=== PATIENT | female | born 1955 | race Caucasian/White ===

== ENCOUNTER 2019-11-26 13:17 | Emergency (ER) | payer OTHER ==
--- OUTSIDE RECORDS SUMMARY | 2019-11-26 13:20 | XMS REPORT | Continuity of Care Document ---
:1955 Author Organization [facility] t Address [address] [place] [address] Care Team Providers Name Role Phone Rakesh PITT, L Attending Clinician Jorje Carpenter Attending Clinician Problems Condition Condition Condition Status Onset Resolution Last Treating Co mments Source Name Details Category Date Date Treatment Clinician Date R92.8 - Diagnosis Active 2016-05-05 Me moria OTH ABN - 09:21:00 l AND R92.8 - 00:01: Mascot INCONCLUSI OTH ABN 00 VE FINDI AND INCONCLUSI VE FINDI Active 05/02/2016 [facility] BREAST Diagnosis Active 2011-08-26 [facility] oria CANCER 4- 15:22:00 l BREAST 08:00: Jeramy CANCER 00 Active 07/02/2011 [facility] 174.4 Diagnosis Active 2011-04-19 [facility] o[facility] 1- 10:25:00 l 174.4 08:00: Jeramy 00 Active 04/02/2011 [facility] 174.4 Diagnosis Active 2010-042011-04-05 [facility] BREAST CA 2- 09:23:00 l 174.4 08:00: Mascot BREAST CA 00 Active 03/02/2011 [facility] Allergies, Adverse Reactions, Alerts This patient has no known allergies or adverse reactions. Social History Social Habit Start Date Stop Date Quantity Comments Source Social History 2016-05-06 2016-05-06 [facility] 05:59:00 05:59:00 Medications This patient has no known medications. Procedures This patient has no known procedures. Encounters Start End Encounter Admission Attending Care Care Encounter Source Date/Time Date/Time Type Type Clinicians Facility Department ID 2019-05-12 2019-05-12 Hospital IMELDA Cameron [id number] 15:03:00 23:59:00 Encounter Elier Polo [id number] Surgical [id number] Specialti [id number] es [address] [place] 2019-05-12 2019-05-12 Office Rakesh SDKYLE [id number] 14:45:27 15:00:27 Visit Elier Polo [id number] Surgical [id number] Specialti [id number] es [address] [place] 2019-05-12 2019-05-12 Letter Rakesh SDKYLE [id number] 00:00:00 00:00:00 (Out) Elier Polo [id number] Surgical [id number] Specialti [id number] es [address] [place] 2016-05-05 2016-05-05 Outpatient Jayden, [id number] 09:13:00 23:59:00 [place] V [id number] Results This patient has no known results.
--- OUTSIDE RECORDS SUMMARY | 2019-11-26 13:20 | XMS REPORT | Continuity of Care Document ---
:1955 Author Organization [email or web address] [facility] Care Team Providers Name Role Phone [email or web address] [facility] Unavailable Un available Problems Problem Status Onset Classification Date Comments Sourc e Date Reported R92.8 - OTH ABN Active 05/02/19 Nicholas rial AND INCONCLUSIVE 17 Her matos FINDI BREAST CANCER Active 07/02/19 [facility] R[facility] theast 12 174.4 Active 04/02/[address] 12 174.4 BREAST CA Active 03/02/20 [facility] 11 Medications No Data Provided for This Section Allergies, Adverse Reactions, Alerts No Known Medication Allergies Immunizations No Data Provided for This Section Results No Data Provided for This Section Pathology Reports No Data Provided for This Section Diagnostic Reports Report Value Date Source Breast Complete Ruben - BREAST COMPLETE RUBEN US 05/05/2016 [facility] US ULTRASOUND OF BOTH BREASTS: 05/05/2016 CLINICAL: History Of Left Cancer. Left breast pain and history of left breast canc er Comparison is made to exams dated: 08/12/2014 breast MRI, 01/12/2014 mammogram, 01/12/2014 ultrasound, 07/09/2013 breast MRI, 01/10/2013 mammogram and 01/10/2013 ultrasound - [facility]. Real-time ultrasound of both breasts was perform ed. The entire right and left br easts were evaluated including all four quadrants, subareolar region, axilla, and axillary tail. There are no abnormal-appearing lymph nodes in b oth axilla. There is a 1.8 cm lymph node in the left axillary tail. with thickened cortex at 6 mm. This correlates with mammography findings. There also is a benign 1 cm fluid collection in the left breast at 1 o'clock middle depth. This abnormality is decreased in size. IMPRESSION: INCOMPLETE: NEED S ADDITIONAL IMAGING EVALUATION - FOLLOW-UP RECOMMENDED The 1.8 cm lymph node in the left axillary tail is indeterminate. The focal asymmetry seen in the left breast likely represent post surgical changes is indeterminate. Given personal history of br east cancer, last MRI on 08.12.2014, and indeterminate left axillary lymph node, MRI is recommended. If MRI cannot be done, ultrasound guided biopsy would be recommended for the left axillary lymph node. The above was discussed with the patient by myself and she voiced understanding on 05.05.2016. She will discuss with her physician first. When the patient returns for her MRI (or biopsy), left mammogram additional views could be done at no charge. Joby Cardenas M.D. mt/:05/05/2016 16:42:32 Safety Intern: Skyler Thomas RT(Janee)(Annetta), [facility] This exam was dictated and i nterpreted by [id number] for [facility]. letter sent: Additional Imaging Ultrasound BI-RADS: 0 Indeterminate Breast Mammo Diag RUBEN - BREAST MAMMO DIAG RUBEN INCL CAD MA 2016 [facility] incl CAD MA BILATERAL DIGITAL DIAGNOSTIC MAMMOGRAM WITH CAD: 05/05/2016 CLINICAL: History Of Left Cancer. Current study was evaluated with a Surgery Technician d Detection (CAD) system. Comparison is made to exams dated: 08/12/2014 breast MRI, 01/12/2014 mammogram, 01/12/2014 ultrasound, 07/09/2013 breast MRI, 01/10/2013 mammogram and 01/10/2013 ultrasound - [facility]. The tissue of both breasts i s heterogeneously dense, which could obscure detection of small masses. There are benign scattered c alcifications and densities in both breasts. There also are post operative findings in the left breast. There is a 2 cm lymph node in the left axillary tail. There also is a focal asymme try in the left breast posterior depth lateral region seen on the craniocaudal view only. This finding is approximately 7 cm from the nipple and best seen on LXCCL. No other significant masses, calcifications, or other findings are seen in either breast. IMPRESSION: INCOMPLETE: NEEDS ADDITIONAL IMAGING EVALUATION The 2 cm lymph node in the left axillary tail is indeterminate. The focal asymmetry in the l eft breast posterior depth lateral region seen on the craniocaudal view only likely represents a post surgical scar and is indeterminate. PLEASE SEE SAME DAY ULTRASOUND REPORT. Joby Cardenas M.D. mt/:05/05/2016 16:42:32 Safety Intern: Skyler GREEN)(Annetta), [facility] This exam was dictated and i nterpreted by [id number] for [facility]. letter sent: Additional Imaging Mammogram BI-RADS: 0 Indeterminate Consultation Notes No Data Provided for This Section Discharge Summaries No Data Provided for This Section History and Physicals No Data Provided for This Section Vital Signs No Data Provided for This Section Encounters Location Location Encounter Encounter Reason Attending [facility] Stat Source Details Type Number For Provider Date Date Visit Outpatient [id number] BREAST [place] 02/21 [place] [facility] [place] [id number] BREAST [place] 03/01 [facility] [place] [id number] 174.4 [place] 04/05 [facility] [place]AST [place] [id number] 174.4 [place] 04/19 [place] [facility] [place] [facility] Outpt Diag [id number] [place] 05/05 05/06 [facility] Outpatient Services /2016 [facility] [id number] BREAST [place] [facility] [place] [facility] [place] Procedures No Data Provided for This Section Assessment and Plan No Data Provided for This Section Plan of Care No Data Provided for This Section Social History Social History Date Source No data available for this 05/06/2016 [facility] Family History No Data Provided for This Section Advance Directives No Data Provided for This Section Functional Status No Data Provided for This Section
[2019-11-26] MEDS ORDERED: FENTANYL CITR 100 MCG/2 ML ONE (14:41)
[2019-11-26] MEDS ORDERED: DIAZEPAM 2 MG TABLET ONE (14:42)
[2019-11-26] MEDS ORDERED: IBUPROFEN 200 MG TAB PO ONE (14:42)
--- NOTE | 2019-11-26 15:05 | EDPHYS ---
Physician Documentation [facility] Name: Sue Christensen Age: 64 yrs Sex: Female : 1955 Arrival Date: 11/26/2019 Time: 13:19 Bed 26 Private MD: Donald Yanez ED Physician Jamal Bryant HPI: 11/25 15:27 This 64 yrs old Female presents to ER via Ambulatory with complaints of Arm snw Injury. 15:27 The patient or guardian complains of decreased range of motion, pain, swelling. The snw complaints affect the right elbow. Context: The problem was sustained at home, resulted from a fall, the patient slipped, while walking. Onset: The symptoms/episode began/occurred suddenly, this morning. Associated signs and symptoms: Pertinent positives: decreased range of motion, pain, of the right elbow. The patient has not experienced similar symptoms in the past. The patient has been recently seen by a physician: the patient's primary care provider, Dr. Yanez earlier today, with similar presenting complaints, X-rays were performed, told to come to ED for splint. Historical: - Allergies: 14:09 No Known Allergies; jl7 - Home Meds: 14:09 Naprosyn Oral [Active]; losartan 50 mg oral tab 2 tabs once daily [Active]; jl7 - PMHx: 14:09 breast cancer; Hypertension; jl7 - PSHx: 14:09 ACL repair 11/03/16; left lumpectomy; jl7 - Immunization history:: Adult Immunizations not up to date. - Social history:: Smoking status: Patient denies any tobacco usage or history of. ROS: 15:27 Constitutional: Negative for fever, chills, and weight loss, Eyes: Negative for injury, snw pain, redness, and discharge, ENT: Negative for injury, pain, and discharge, Neck: Negative for injury, pain, and swelling, Cardiovascular: Negative for chest pain, palpitations, and edema, Respiratory: Negative for shortness of breath, cough, wheezing, and pleuritic chest pain, Abdomen/GI: Negative for abdominal pain, nausea, vomiting, diarrhea, and constipation, Back: Negative for injury and pain, : Negative for injury, bleeding, discharge, and swelling, Skin: Negative for injury, rash, and discoloration, Neuro: Negative for headache, weakness, numbness, tingling, and seizure, Psych: Negative for depression, anxiety, suicide ideation, homicidal ideation, and hallucinations. 15:27 MS/extremity: Positive for injury or acute deformity, decreased range of motion, pain, swelling, tenderness, of the right elbow. Exam: 15:16 Constitutional: This is a well developed, well nourished patient who is awake, alert, snw and in no acute distress. Head/Face: Normocephalic, atraumatic. Eyes: Pupils equal round and reactive to light, extra-ocular motions intact. Lids and lashes normal. Conjunctiva and sclera are non-icteric and not injected. Cornea within normal limits. Periorbital areas with no swelling, redness, or edema. ENT: Nares patent. No nasal discharge, no septal abnormalities noted. Tympanic membranes are normal and external auditory canals are clear. Oropharynx with no redness, swelling, or masses, exudates, or evidence of obstruction, uvula midline. Mucous membranes moist. Neck: Trachea midline, no thyromegaly or masses palpated, and no cervical lymphadenopathy. Supple, full range of motion without nuchal rigidity, or vertebral point tenderness. No Meningismus. Chest/axilla: Normal chest wall appearance and motion. Nontender with no deformity. No lesions are appreciated. Cardiovascular: Regular rate and rhythm with a normal S1 and S2. No gallops, murmurs, or rubs. Normal PMI, no JVD. No pulse deficits. Respiratory: Lungs have equal breath sounds bilaterally, clear to auscultation and percussion. No rales, rhonchi or wheezes noted. No increased work of breathing, no retractions or nasal flaring. Abdomen/GI: Soft, non-tender, with normal bowel sounds. No distension or tympany. No guarding or rebound. No evidence of tenderness throughout. Back: No spinal tenderness. No costovertebral tenderness. Full range of motion. Skin: Warm, dry with normal turgor. Normal color with no rashes, no lesions, and no evidence of cellulitis. Neuro: Awake and alert, GCS 15, oriented to person, place, time, and situation. Cranial nerves II-XII grossly intact. Motor strength 5/5 in all extremities. Sensory grossly intact. Cerebellar exam normal. Normal gait. Psych: Awake, alert, with orientation to person, place and time. Behavior, mood, and affect are within normal limits. 15:16 Musculoskeletal/extremity: Extremities: grossly normal except: noted in the right elbow: decreased ROM, swelling, tenderness, Circulation is intact in all extremities. Sensation intact. Compartment Syndrome exam of affected extremity: is normal. 15:16 Neuro: Exam negative for acute changes. Vital Signs: 14:04 BP 178 / 95; Pulse 66; Resp 17; Temp 97.9; Pulse Ox 100% ; Weight 76.2 kg; Pain 9/10; jl7 MDM: 14:25 Patient medically screened. snw 15:17 Data reviewed: vital signs, nurses notes. Data interpreted: Pulse oximetry: on room air snw is 100 %. Interpretation: normal. Counseling: I had a detailed discussion with the patient and/or guardian regarding: the historical points, exam findings, and any diagnostic results supporting the discharge/admit diagnosis, the presence of at least one elevated blood pressure reading (>120/80) during this emergency department visit, radiology results, the need for outpatient follow up, for definitive care, a orthopedic surgeon. Response to treatment: the patient's symptoms have mildly improved after treatment. Special discussion: I have referred the patient to see his PCP for further evaluation of high blood pressure. Based on the history and exam findings, there is no indication for further emergent testing or inpatient evaluation. I discussed with the patient/guardian the need to see the orthopedic surgeon for further evaluation of the symptoms. I discussed with the patient/guardian the need to see the primary care provider for further evaluation of the symptoms. 11/25 14:24 Order name: Posterior Elbow Splint: please pad elbow really well with hand in neutral snw position; Complete Time: 14:53 11/25 14:24 Order name: Sling; Complete Time: 14:53 snw 11/25 14:25 Order name: Ice pack; Complete Time: 14:36 snw Administered Medications: 14:36 Drug: fentaNYL (PF) 50 mcg Route: IM; Site: left deltoid; ss 14:53 Follow up: Response: No adverse reaction; Pain is decreased ss 14:36 Drug: Valium 2 mg Route: PO; ss 14:53 Follow up: Response: No adverse reaction; Pain is decreased ss 14:36 Drug: Motrin 400 mg Route: PO; ss 14:53 Follow up: Response: No adverse reaction; Pain is decreased ss Disposition: 16:49 Co-signature as Attending Physician, Jamal Bryant MD. rn Disposition: 11/26/19 15:05 Discharged to Home. Impression: Fall due to bumping against object, Supracondylar fracture of right elbow. - Condition is Stable. - Discharge Instructions: Cast or Splint Care, Adult, Elbow Fracture Treated With ORIF, Elbow Fracture Treated With ORIF, Care After, Hypertension, RICE for Routine Care of Injuries, How to Use a Sling. - Medication Reconciliation Form, Thank You Letter, Antibiotic Education, Prescription Opioid Use form. - Follow up: Donald Yanez MD; When: 7 - 10 days; Reason: Recheck today's complaints, Continuance of care, Staple/Suture removal, Re-evaluation by your physician. Follow up: Emergency Department; When: As needed; Reason: Worsening of condition, Staple/Suture removal. Signatures: Libra Nogueira, PRINTED CIRCUIT BOARDS ROUTER-C PRINTED CIRCUIT BOARDS ROUTER-Csnw Jamal Bryant MD MD rn Smirch, Shelby, RN RN ss Leal, Jahala, RN RN jl7 Corrections: (The following items were deleted from the chart) 15:08 15:05 11/26/2019 15:05 Discharged to Home. Impression: Laceration without foreign body snw of right hand; Bitten by cat. Condition is Stable. Forms are Medication Reconciliation Form, Thank You Letter, Antibiotic Education, Prescription Opioid Use. Follow up: Donald Yanez; When: 7 - 10 days; Reason: Recheck today's complaints, Continuance of care, Staple/Suture removal, Re-evaluation by your physician. Follow up: Emergency Department; When: As needed; Reason: Worsening of condition, Staple/Suture removal. snw 15:35 15:23 11/26/2019 15:05 Discharged to Home. Impression: Fall due to bumping against ss object; Supracondylar fracture of right elbow. Condition is Stable. Discharge Instructions: Hypertension, Laceration Care, Adult, Stitches, Paint Bank, or Adhesive Wound Closure, Wound Infection, Wound Care, Animal Bite. Prescriptions for Tylenol-Codeine #3 300-30 mg Oral Tablet - take 2 tablets by ORAL route every 6 hours As needed; 14 tablet, Doxycycline Hyclate 100 mg Oral Tablet - take 1 tablet by ORAL route every 12 hours; 20 tablet. and Forms are Medication Reconciliation Form, Thank You Letter, Antibiotic Education, Prescription Opioid Use. Follow up: Donald Yanez; When: 7 - 10 days; Reason: Recheck today's complaints, Continuance of care, Staple/Suture removal, Re-evaluation by your physician. Follow up: Emergency Department; When: As needed; Reason: Worsening of condition, Staple/Suture removal. snw
--- NOTE | 2019-11-26 15:05 | ER ---
Nurse's Notes [facility] Name: Sue Christensen Age: 64 yrs Sex: Female : 1955 Arrival Date: 11/26/2019 Time: 13:19 Bed 26 [facility] MD: Donald Yanez Diagnosis: Fall due to bumping against object;Supracondylar fracture of right elbow Presentation: 11/25 14:04 Chief complaint: Patient states: Slipped and fell onto right elbow, had out-patient jl7 X-rays and Dr. Yanez sent me here and said they were trying to find a surgeon and if they aren't able to find a surgeon then the ER will splint it. Coronavirus screen: Client denies travel out of the [place] in the last 14 days. At this time, the client does not indicate any symptoms associated with coronavirus-19. Ebola Screen: No symptoms or risks identified at this time. Initial Sepsis Screen: Does the patient meet any 2 criteria? No. Patient's initial sepsis screen is negative. Does the patient have a suspected source of infection? No. Patient's initial sepsis screen is negative. Risk Assessment: Do you want to hurt yourself or someone else? Patient reports no desire to harm self or others. Onset of symptoms was November 26, 2019. Care prior to arrival: Splint applied. Transition of care: patient was received from another setting of care (ambulatory primary care physician practice), Dr. Yanez. 14:04 Method Of Arrival: Ambulatory [facility] 14:04 Acuity: JUSTYNA 4 jl7 Triage Assessment: 14:09 General: Appears in no apparent distress. uncomfortable, Behavior is calm, cooperative, jl7 appropriate for age. Pain: Complains of pain in right arm Pain currently is 9 out of 10 on a pain scale. Musculoskeletal: right arm splinted. Injury Description: right elbow fracture. Historical: - Allergies: 14:09 No Known Allergies; jl7 - Home Meds: 14:09 Naprosyn Oral [Active]; losartan 50 mg oral tab 2 tabs once daily [Active]; jl7 - PMHx: 14:09 breast cancer; Hypertension; jl7 - PSHx: 14:09 ACL repair 11/03/16; left lumpectomy; jl7 - Immunization history:: Adult Immunizations not up to date. - Social history:: Smoking status: Patient denies any tobacco usage or history of. Screenin:36 Abuse screen: Denies threats or abuse. Denies injuries from another. Nutritional ss screening: No deficits noted. Tuberculosis screening: Never had TB. Fall Risk None identified. Assessment: 14:36 General: Appears in no apparent distress. comfortable, Behavior is calm, cooperative. ss Pain: Complains of pain in right arm Pain currently is 9 out of 10 on a pain scale. Quality of pain is described as aching, throbbing, Pain began today Is continuous. Neuro: Level of Consciousness is awake, alert, obeys commands, Oriented to person, place, time, situation, Speech is normal. Cardiovascular: Pulses are palpable in right radial artery and left radial artery. Respiratory: Airway is patent Respiratory effort is even, unlabored, Respiratory pattern is regular, symmetrical. GI: No signs and/or symptoms were reported involving the gastrointestinal system. EENT: Nares are clear. Derm: Skin is intact, is healthy with good turgor, Skin is pink, warm \T\ dry. normal. Musculoskeletal: Range of motion: limited in right shoulder and right elbow. 14:54 Reassessment: Patient appears in no apparent distress at this time. Patient and/or ss family updated on plan of care and expected duration. Pain level reassessed. Patient is alert, oriented x 3, equal unlabored respirations, skin warm/dry/pink. pain decreased. Splint in place. Vital Signs: 14:04 BP 178 / 95; Pulse 66; Resp 17; Temp 97.9; Pulse Ox 100% ; Weight 76.2 kg; Pain 9/10; jl7 ED Course: 13:19 Patient arrived in ED. ag5 13:19 Donald Yanez MD is Private Physician. ag5 14:08 Triage completed. jl7 14:09 Arm band placed on right wrist. Patient placed in an exam room, on a stretcher. jl7 14:15 Libra Nogueira FNP-C [facility] snw 14:15 Jamal Bryant MD is Attending Physician. snw 14:35 Yulissa Li, FAZAL is Primary Nurse. ss 14:36 Patient has correct armband on for positive identification. Bed in low position. Call ss light in reach. 14:54 No provider procedures requiring assistance completed. Patient did not have IV access ss during this emergency room visit. Orthoglass splint: posterior long arm splint applied to the right arm. Sling applied to right arm. 15:04 Donald Yanez MD is Referral Physician. snw 15:16 Libra Nogueira FNP-C [facility]. snw Administered Medications: 14:36 Drug: fentaNYL (PF) 50 mcg Route: IM; Site: left deltoid; ss 14:53 Follow up: Response: No adverse reaction; Pain is decreased ss 14:36 Drug: Valium 2 mg Route: PO; ss 14:53 Follow up: Response: No adverse reaction; Pain is decreased ss 14:36 Drug: Motrin 400 mg Route: PO; ss 14:53 Follow up: Response: No adverse reaction; Pain is decreased ss Outcome: 15:05 Discharge ordered by . snw 15:35 Discharged to home ambulatory. ss 15:35 Condition: good 15:35 Discharge instructions given to patient, Instructed on discharge instructions, follow up and referral plans. Demonstrated understanding of instructions, follow-up care. 15:35 Patient left the ED. ss Signatures: Libra Nogueira FNP-C UNCLAIMED PROPERTY MANAGER-Csnw Yulissa Li RN RN ss Wendy May RN RN jl7 Abi Smith 5
[2019-12-01 10:58] VITALS: BP 178/95; TEMP 97.9; O2SAT 100
== END 2019-11-26 15:35 | disposition home or self-care (01) ==
LOC: ER 13:17
PROC: 2W38X1Z Immobilization of Right Upper Extremity using Splint (ICD-10-PCS; principal; 2019-11-26)
DX: S42.411A Displaced simple supracondylar fracture without intercondylar fracture of right humerus, initial encounter for closed fracture (principal); W18.00XA Striking against unspecified object with subsequent fall, initial encounter; Y93.01 Activity, walking, marching and hiking; Y92.009 Unspecified place in unspecified non-institutional (private) residence as the place of occurrence of the external cause; Z85.3 Personal history of malignant neoplasm of breast; I10 Essential (primary) hypertension
CPT/HCPCS: 96372; 99283; 29105; J3010